=== PATIENT | male | born 1940 | race Caucasian/White ===

== ENCOUNTER → 2017-02-15 | Outpatient (CLI) | payer MEDICARE ==
--- NOTE | ~2017-02-15 | US78 ---
[facility] A Service of [facility] & [facility] RADIOLOGY TEXT RESULTS PATIENT: HUGO SHEEHAN LOCATION: CNIV : 40 UNIT #: [id number] AGE: [address]: Mere Santiago MD SEX: M ORDER DR: [id number] [facility] [address] [place], [place] [address] [id number] O MR#: [id number] Acc #: [id number] NAME: HUGO SHEEHAN : 1940 SEX: M STUDY DATE/TIME: 02/15/2017 8:52 UNIT: CNIV ROOM: STUDY DESCRIPTION: US Kidney Duplex Complete Attending Physician: Mere Santiago M.D. Referring Physician: Mere Santaigo M.D. Ordering Physician: Mere Santiago M.D. Primary Care Physician: Primary Care Physician No MEDICAL IMAGING REPORT This report is preliminary unless electronic signature is present EXAM Bilateral renal artery Doppler ultrasound, 02/15/2017 HISTORY 76-year-old male with hypertension. Diabetes. COMPARISON None FINDINGS Real time burgess-scale, color Doppler and spectral Doppler imaging was performed of bilateral renal arteries. Abdominal aortic peak systolic velocity in the juxtarenal segment is 134.5 cm/sec with normal spectral Doppler waveform. The imaged abdominal aorta is of normal caliber measuring up to 1.7 cm. Left renal artery peak systolic velocity proximal segment 112.8 cm/sec, mid segment 109.2 cm/sec, distal segment 91.1 cm/sec with normal spectral Doppler waveform. Left renal vein is patent. Left kidney measures 12.1 cm in length without focal cortical lesion, shadowing stone or hydronephrosis. Left intrarenal resistive indices vary between 0.64 to 0.74. Right kidney measures 10.2 cm in length without focal cortical lesion, shadowing stone or hydronephrosis. Right intrarenal resistive indices vary between 0.65 to 0.72. Right renal artery peak systolic velocity proximal segment 125.2 cm/sec, mid segment 95.7 cm/sec, distal segment 51.8 cm/sec with normal spectral Doppler waveform. Right renal vein is patent. The right renal to aortic ratio is 0.9. Left renal to aortic ratio 0.8. [facility] A Service of [facility] & [facility] RADIOLOGY TEXT RESULTS PATIENT: HUGO SHEEHAN LOCATION: [facility] : 40 UNIT #: [id number] AGE: [address]: Mere Santiago MD SEX: M ORDER DR: IMPRESSION 1. No hemodynamically significant stenosis in the bilateral renal arteries based upon [employer] criteria. 2. Bilateral renal veins are patent. 3. Unremarkable sonographic appearance of the kidneys. Dictated by... Mary Lou Spivey M.D. THIS IS AN ELECTRONICALLY VERIFIED REPORT Mary Lou Spivey M.D. at 02/16/2017 5:28 PM Olimpia TD: 02/16/2017 13:09 JOB #: [id number] MEDICAL IMAGING REPORT Page 1 of 1 COPY
== END | disposition home or self-care (01) ==
LOC: CNIV 08:28
DX: E11.9 Type 2 diabetes mellitus without complications (principal); I10 Essential (primary) hypertension; R60.0 Localized edema
CPT/HCPCS: 93975